=== PATIENT | male | born 1975 | race African-American/Black ===

== ENCOUNTER 2016-08-15 19:42 | Inpatient (IN) | payer OTHER ==
[2016-08-15 22:10] VITALS: BMI 25.8
--- NOTE | 2016-08-15 22:52 | HP ---
CIWA Score - CIWA Score Nausea/Vomitin-Mild Nausea/No Vomiting Muscle Tremors: 1-None Visible, but [place] Anxiety: 3 Agitation: 3 Paroxysmal Sweats: 2 Orientation: 0-Oriented Tacttile Disturbances: 0-None Auditory Disturbances: 0-None Visual Disturbances: 2-Mild Sensitivity Headache: 1-Very Mild CIWA-Ar Total Score: 13 Admission ROS BHS - HPI Chief Complaint: WITHDRAWAL SYMPTOMS Allergies/Adverse Reactions: Allergies Allergy/AdvReac Type Severity Reaction Status Date / Time house dust Allergy Verified 08/15/16 22:49 BUTTER Allergy Uncoded 08/15/16 22:49 History of Present Illness: 41 Y.O. MAN WITH AN EXTENSIVE HISTORY OF DRUG AND ALCOHOL DEPENDENCE IS SEEKING TREATMENT. HE REPORTS HE DOES NOT HAVE A SIGNIFICANT PERIOD OF SOBRIETY. HE IS CURRENTLY ENROLLED IN A MMTP. Exam Limitations: No Limitations - Ebola screening Have you traveled outside of the country in the last 21 days: No (N) Have you had contact with anyone from an Ebola affected area: No Have you been sick,other than usual withdrawal symptoms: No Do you have a fever: No - Review of Systems Constitutional: Changes in sleep, Weakness EENT: reports: No Symptoms Reported Respiratory: reports: Shortness of Breath (H/O ASTHMA) Cardiac: reports: No Symptoms Reported GI: reports: No Symptoms Reported : reports: No Symptoms Reported Musculoskeletal: reports: Back Pain Integumentary: reports: Bruising (BRUISE TO LEFT MILLER) Neuro: reports: No Symptoms reported Endocrine: reports: No Symptoms Reported Hematology: reports: No Symptoms Reported Psychiatric: reports: Orientated x3, Anxious, other (IMPULSIVE CONTROL DISORDER , PTSD) Other Systems: Reviewed and Negative Patient History - Patient Medical History Hx Anemia: No Hx Asthma: Yes Hx Cancer: No Hx Cardiac Disorders: No Hx Congestive Heart Failure: No Hx Hypertension: No Hx Hypercholesterolemia: No Hx Pacemaker: No HX Cerebrovascular Accident: No Hx Seizures: No Hx Dementia: No Hx Diabetes: No Hx Gastrointestinal Disorders: No Hx Liver Disease: No Hx Genitourinary Disorders: No Hx Sexually Transmitted Disorders: No Hx Renal Disease (ESRD): No Hx Thyroid Disease: No Hx Human Immunodeficiency Virus (HIV): No Hx Hepatitis C: No Hx Depression: Yes Hx Suicide Attempt: No Hx Bipolar Disorder: Yes Hx Schizophrenia: Yes Other Medical History: PTSD, IMPULSIVE CONTROL DISORDER - Patient Surgical History Past Surgical History: No - PPD History Previous Implant?: Yes Documented Results: Negative w/o proof PPD to be Administered?: Yes - Reproductive History Patient is a Female of Child Bearing Age (11 -55 yrs old): No - Smoking Cessation Smoking history: Current every day smoker Have you smoked in the past 12 months: Yes Aproximately how many cigarettes per day: 10 Hx Chewing Tobacco Use: No Initiated information on smoking cessation: Yes 'Breaking Loose' booklet given: 08/15/16 - Substance & Tx. History Hx Alcohol Use: Yes Hx Substance Use: Yes Substance Use Type: Alcohol, Tranquilizers Hx Substance Use Treatment: Yes (REHAB ) - Substances Abused Alcohol Route: Oral Frequency: Daily Amount used: 1 GALLON OF LIQUOR Age of first use: 10 Date of Last Use: 08/14/16 Benzodiazepine (Klonopin) Route: Oral Frequency: Daily Amount used: 50MG Age of first use: 21 Date of Last Use: 08/14/16 Cocaine Route: Inhalation Frequency: 3-6 times per week Amount used: 1/2 GRAM Age of first use: 10 Date of Last Use: 08/14/16 Family Disease History - Family Disease History Family Disease History: Heart Disease: Mother, CA: Grandparent, Respiratory: Father (HEROIN/ETOH DEPENDENCE- ), Other: Father Admission Physical Exam S - Vital Signs Vital Signs: Vital Signs - 24 hr 08/15/16 22:03 Temperature 97.2 F L Pulse Rate 66 Respiratory 18 Rate Blood Pressure 136/81 - Physical General Appearance: Yes: Disheveled, Irritable, Sweating, Anxious HEENTM: Yes: Hearing grossly Normal, Normal ENT Inspection, Normocephalic, Normal Voice Respiratory: Yes: Chest Non-Tender, Lungs Clear, Normal Breath Sounds, No Respiratory Distress, No Accessory Muscle Use Neck: Yes: Within Normal Limits Breast: Yes: Breast Exam Deferred Cardiology: Yes: Regular Rhythm, Regular Rate, S1, S2 Abdominal: Yes: Normal Bowel Sounds, Non Tender, Flat, Soft Genitourinary: Yes: Within Normal Limits Musculoskeletal: Yes: Gait Steady, Pelvis Stable, Back pain Extremities: Yes: Normal Inspection, Normal Range of Motion, Non-Tender Neurological: Yes: Fully Oriented, Normal Mood/Affect, Normal Response Integumentary: Yes: Normal Color, Dry Lymphatic: Yes: Within Normal Limits - Diagnostic (1) Alcohol dependence with uncomplicated withdrawal Current Visit: Yes Status: Chronic (2) Opioid dependence on agonist therapy Current Visit: Yes Status: Acute (3) Asthma Current Visit: Yes Status: Chronic (4) Sedative, hypnotic or anxiolytic dependence with withdrawal, uncomplicated Current Visit: Yes Status: Chronic (5) Cocaine dependence, uncomplicated Current Visit: Yes Status: Chronic Cleared for Admission [facility] - Detox or Rehab [facility] Level of Care: Medically Managed Detox Regimen/Protocol: Valium [facility] Breath Alcohol Content Breath Alcohol Content: 0 Urine Drug Screen - Results Drug Screen Negative: No Urine Drug Screen Results: THC-Marijuana, YOLIE-Cocaine, OPI-Opiates, MTD- Methadone
[2016-08-15] MEDS ORDERED: MAG HYDROX/AL HYDROX/SIMETH 30 ML UNIT-DOSE CUP PO PRN (23:05)
[2016-08-15] MEDS ORDERED: diazePAM 5 MG TABLET PO ONE (23:05)
[2016-08-15] MEDS ORDERED: NICOTINE POLACRILEX 2 MG GUM BC PRN (23:05)
[2016-08-15] MEDS ORDERED: guaiFENesin/D-METHORPHAN HB 10 ML UNIT-DOSE CUPS PO PRN (23:05)
[2016-08-15] MEDS ORDERED: diphenhydrAMINE HCL 50 MG CAPSULE PO PRN (23:05)
[2016-08-15] MEDS ORDERED: ACETAMINOPHEN 325 MG TABLET (FP) PO PRN (23:05)
[2016-08-15] MEDS ORDERED: hydrOXYzine PAMOATE 50 MG CAPSULE (FP) PO PRN (23:05)
[2016-08-15] MEDS ORDERED: P-EPHED 60MG/TRIPROLIDI 2.5MG TABLET PO PRN (23:05)
[2016-08-15] MEDS ORDERED: MAGNESIUM CITRATE 300 ML BOTTLE PO PRN (23:05)
[2016-08-15] MEDS ORDERED: diazePAM 5 MG TABLET PO PRN (23:05)
[2016-08-15] MEDS ORDERED: IBUPROFEN 400 MG TABLET (FP) PO PRN (23:05)
[2016-08-15] MEDS ORDERED: LOPERAMIDE HCL 2 MG CAPSULE PO PRN (23:05)
[2016-08-15] MEDS ORDERED: MENTHOL/PHENOL 1 EACH UD MM PRN (23:05)
[2016-08-15] MEDS ORDERED: ALBUTEROL SO4 6.7 GM HFA INHALER IH PRN (23:07)
[2016-08-16] MEDS: diazePAM 5 MG TABLET PO SCH ×4 (01:43→23:23)
--- NOTE | 2016-08-16 08:57 | PN ---
S CIWA - CIWA Score Nausea/Vomitin Muscle Tremors: 3 Anxiety: 3 Agitation: 2 Paroxysmal Sweats: 1-Minimal Palms Moist Orientation: 0-Oriented Tacttile Disturbances: 1-Very Mild Itch/Numbness Auditory Disturbances: 1-Very Mild Visual Disturbances: 1-Very Mild Sensitivity Headache: 2-Mild CIWA-Ar Total Score: 17 BHS Progress Note (SOAP) Subjective: ALERT,IRRITABLE,ANXIOUS,INTERRUPTED SLEEP,TREMOR,PAIN IN THE BODY AND BACK Objective: 08/16/16 08:56 Vital Signs Temperature 97.1 F L 08/16/16 06:19 Pulse Rate 64 08/16/16 06:19 Respiratory Rate 16 08/16/16 06:19 Blood Pressure 98/61 08/16/16 06:19 O2 Sat by Pulse Oximetry (%) EKG NSR,NORMAL ECG LABS PENDING Assessment: 08/16/16 08:56 WITHDRAWAL SYMPTOM Plan: CONTINUE DETOX
[2016-08-16] MEDS ORDERED: METHADONE HCL 10 MG TABLET PO ONE (09:33)
[2016-08-16] MEDS ORDERED: METHADONE 40 MG, METHADONE 20 MG PO ONE (10:00)
[2016-08-16] MEDS: NICOTINE 14 MG/24 HOURS TOPICAL PATCH TD SCH (10:09)
[2016-08-16] MEDS: PRENATAL VITAMINS W/ FOLIC ACID TABLET (FP) PO SCH (10:09)
[2016-08-16] MEDS ORDERED: METHADONE HCL 10 MG TABLET ONE (10:11)
[2016-08-16] MEDS ORDERED: METHADONE HCL 40 MG DISPERSABLE TABLET ONE (10:11)
[2016-08-16 11:28] LABS: MCH 28.9 pg (25.7-33.7); MCHC 32.5 g/dl (32.0-35.9); MEAN CELL VOLUME 88.9 fl (80-96); MEAN PLT VOLUME 7.6 fl (7.5-11.1); PLATELET COUNT 239 K/MM3 (134-434); RDW 15.4 % (11.9-15.9); WHITE BLOOD COUNT 7.7 K/mm3 (4.0-10.0)
[2016-08-16 11:40] LABS: ALBUMIN 3.5 g/dl (3.4-5.0); ALK PHOS 57 U/L (45-117); ANION GAP 10 (8-16); BILIRUBIN,TOTAL 0.4 mg/dL (0.2-1.0); CALCIUM 8.6 mg/dL (8.5-10.1); CO2 31 mmol/L (21-32); CREATININE 1.1 mg/dL (0.7-1.3); GLUCOSE,RANDOM 81 mg/dL (74-106); SGOT/AST 11 U/L (15-37); SGPT/ALT 15 U/L (12-78); TOT PROT 6.5 g/dl (6.4-8.2)
[2016-08-16 14:12] LABS: HIV 1 & 2 AB NEGATIVE; HIV 1 AGp24 NEGATIVE
--- NOTE | 2016-08-16 16:35 | CONSULT ---
[facility] Psychiatric Consult - Data Date of interview: 08/16/16 Admission source: [facility] Identifying data: First admission to [facility] for this 41 y/o AA male seeking detox treatment on for alcohol,cocaine and marijuana dependence.Patient is single,a father of one,domiciled,unemployed and supported on food stamps. Substance Abuse History: - Smoking Cessation. Smoking history: Current every day smoker. Have you smoked in the past 12 months: Yes. Aproximately how many cigarettes per day: 10. Hx Chewing Tobacco Use: No. Initiated information on smoking cessation: Yes. 'Breaking Loose' booklet given: 08/15/16. - Substance & Tx. History. Hx Alcohol Use: Yes. Hx Substance Use: Yes. Substance Use Type : Alcohol, Tranquilizers. Hx Substance Use Treatment: Yes (REHAB ). - Substances Abused. Alcohol. Route: Oral. Frequency: Daily. Amount used: 1 GALLON OF LIQUOR. Age of first use: 10. Date of Last Use: 08/14/16. Benzodiazepine (Klonopin). Route: Oral. Frequency: Daily. Amount used: 50MG. Age of first use: 21. Date of Last Use: 08/14/16. Cocaine. Route: Inhalation. Frequency: 3-6 times per week. Amount used: 1/2 GRAM. Age of first use: 10. Date of Last Use: 08/14/16. Confirmed by the patient in this interview. Medical History: No reported medical problems. Psychiatric History: Patient reports a history of " a few " psychiatric hospitalizations.Known to [facility].Diagnosed with PTSD.Mr Ovalle is a mildly sedated and marginally cooperative historian.He is not able to provide information to support his diagnosis.He states that he has no contact with psychiatrists or other mental healthcare providers.Medications : patient remembers only gabapentin and celexa (not doses).He denies history of suicide attempts. Physical/Sexual Abuse/Trauma History: Patient denies. Additional Comment: Urine Drug Screen Results: THC-Marijuana, YOLIE-Cocaine, OPI- Opiates, MTD-Methadone.Noted. Mental Status Exam - Mental Status Exam Alert and Oriented to: Time, Place, Person Cognitive Function: Grossly Intact Patient Appearance: Well Groomed Mood: Withdrawn Affect: Constricted Patient Behavior: Sedated (mildly), Fatigued Speech Pattern: Clear, Delayed Voice Loudness: Normal Thought Process: Goal Oriented Thought Disorder: Not Present Hallucinations: Denies Suicidal Ideation: Denies Homicidal Ideation: Denies Insight/Judgement: Poor Sleep: Fair Appetite: Good Muscle strength/Tone: Normal Gait/Station: Normal Psychiatric Findings - Problem List ([place] 1, 2,3) (1) Alcohol dependence with uncomplicated withdrawal Current Visit: Yes Status: Acute (2) Opioid dependence on agonist therapy Current Visit: Yes Status: Acute (3) Cocaine dependence, uncomplicated Current Visit: Yes Status: Acute (4) Sedative, hypnotic or anxiolytic dependence with withdrawal, uncomplicated Current Visit: Yes Status: Acute (5) Nicotine dependence Current Visit: Yes Status: Acute (6) Substance induced mood disorder Current Visit: Yes Status: Acute (7) Asthma Current Visit: Yes Status: Chronic - Initial Treatment Plan Initial Treatment Plan: Psychoeducation.Detoxification.Medications : celexa 10 mg po daily.Side effects/benefits discussed with the patient.He agrees with this careplan.Observation.
[2016-08-16] MEDS ORDERED: THIAMINE HCL 100 MG TABLET (FP) PO SCH (22:00)
[2016-08-17 00:20] LABS: URINE APPEARANCE CLEAR; URINE BILIRUBIN NEGATIVE (NEGATIVE); URINE BLOOD NEGATIVE (NEGATIVE); URINE COLOR LTYELLOW; URINE GLUCOSE (UA) NEGATIVE (NEGATIVE); URINE KETONE NEGATIVE (NEGATIVE); URINE LEUK ESTERASE NEGATIVE (NEGATIVE); URINE NITRITE NEGATIVE (NEGATIVE); URINE PROTEIN NEGATIVE (NEGATIVE); URINE UROBILINOGEN NEGATIVE E.U./dl (0.2-1.0)
[2016-08-17] MEDS ORDERED: METHADONE HCL 10 MG TABLET ONE (04:42)
[2016-08-17] MEDS ORDERED: METHADONE HCL 40 MG DISPERSABLE TABLET ONE (04:42)
[2016-08-17] MEDS ORDERED: METHADONE HCL 10 MG TABLET PO SCH (06:00)
[2016-08-17] MEDS ORDERED: METHADONE 40 MG, METHADONE 20 MG PO SCH (06:00)
[2016-08-17] MEDS ORDERED: CITALOPRAM HYDROBROMIDE 10 MG TABLET (FP) PO SCH (10:00)
[2016-08-17] MEDS ORDERED: diazePAM 5 MG TABLET PO SCH (10:00)
[2016-08-17] MEDS: PRENATAL VITAMINS W/ FOLIC ACID TABLET (FP) PO SCH (10:11)
[2016-08-17] MEDS: NICOTINE 14 MG/24 HOURS TOPICAL PATCH TD SCH (10:11)
--- NOTE | 2016-08-17 11:19 | PN ---
S CIWA - CIWA Score Nausea/Vomitin Muscle Tremors: 3 Anxiety: 2 Agitation: 2 Paroxysmal Sweats: 1-Minimal Palms Moist Orientation: 0-Oriented Tacttile Disturbances: 1-Very Mild Itch/Numbness Auditory Disturbances: 1-Very Mild Visual Disturbances: 1-Very Mild Sensitivity Headache: 2-Mild CIWA-Ar Total Score: 16 BHS Progress Note (SOAP) Subjective: ALERT,IRRITABLE,ANXIOUS,INTERRUPTED SLEEP,TREMOR Objective: 08/17/16 11:18 Vital Signs Temperature 98.1 F 08/17/16 09:48 Pulse Rate 72 08/17/16 09:48 Respiratory Rate 18 08/17/16 09:48 Blood Pressure 113/83 08/17/16 09:48 O2 Sat by Pulse Oximetry (%) Laboratory Last Values WBC 7.7 K/mm3 (4.0-10.0) 08/16/16 08:00 RBC 4.89 M/mm3 (4.00-5.60) 08/16/16 08:00 Hgb 14.2 GM/dL (11.7-16.9) 08/16/16 08:00 Hct 43.5 % (35.4-49) 08/16/16 08:00 MCV 88.9 fl (80-96) 08/16/16 08:00 MCHC 32.5 g/dl (32.0-35.9) 08/16/16 08:00 RDW 15.4 % (11.9-15.9) 08/16/16 08:00 Plt Count 239 K/MM3 (134-434) 08/16/16 08:00 MPV 7.6 fl (7.5-11.1) 08/16/16 08:00 Sodium 141 mmol/L (136-145) 08/16/16 08:00 Potassium 4.2 mmol/L (3.5-5.1) 08/16/16 08:00 Chloride 100 mmol/L (98-107) 08/16/16 08:00 Carbon Dioxide 31 mmol/L (21-32) 08/16/16 08:00 Anion Gap 10 (8-16) 08/16/16 08:00 BUN 15 mg/dL (7-18) 08/16/16 08:00 Creatinine 1.1 mg/dL (0.7-1.3) 08/16/16 08:00 Creat Clearance w eGFR > 60 (>60) 08/16/16 08:00 Random Glucose 81 mg/dL (74-106) 08/16/16 08:00 Calcium 8.6 mg/dL (8.5-10.1) 08/16/16 08:00 Total Bilirubin 0.4 mg/dL (0.2-1.0) 08/16/16 08:00 AST 11 U/L (15-37) L 08/16/16 08:00 ALT 15 U/L (12-78) 08/16/16 08:00 Alkaline Phosphatase 57 U/L (45-117) 08/16/16 08:00 Total Protein 6.5 g/dl (6.4-8.2) 08/16/16 08:00 Albumin 3.5 g/dl (3.4-5.0) 08/16/16 08:00 Urine Color Ltyellow 08/16/16 23:58 Urine Appearance Clear 08/16/16 23:58 Urine pH 6.0 (5.0-8.0) 08/16/16 23:58 Ur Specific [place] 1.016 (1.001-1.035) 08/16/16 23:58 Urine Protein Negative (NEGATIVE) 08/16/16 23:58 Urine Glucose (UA) Negative (NEGATIVE) 08/16/16 23:58 Urine Ketones Negative (NEGATIVE) 08/16/16 23:58 Urine Blood Negative (NEGATIVE) 08/16/16 23:58 Urine Nitrite Negative (NEGATIVE) 08/16/16 23:58 Urine Bilirubin Negative (NEGATIVE) 08/16/16 23:58 Urine Urobilinogen Negative E.U./dl (0.2-1.0) 08/16/16 23:58 Ur Leukocyte Esterase Negative (NEGATIVE) 08/16/16 23:58 RPR Titer Nonreactive (NONREACTIVE) 08/16/16 08:00 HIV 1&2 Antibody Screen Negative 08/16/16 08:00 HIV P24 Antigen Negative 08/16/16 08:00 Assessment: 08/17/16 11:18 WITHDRAWAL SYMPTOM Plan: CONTINUE DETOX
--- NOTE | 2016-08-17 13:01 | PN ---
S Progress Note Note: PATIENT DID NOT WANT TO COMPLETE TREATMENT,SEEN BY COUNSELOR,SIGNED RELEASE AMA
--- NOTE | 2016-08-17 13:03 | DS ---
[facility] Detox Discharge Summary Admission Date: 08/15/16 - History Present History: Alcohol Dependence, Cocaine Dependence, MMTP Additional Comments: PATIENT DID NOT WANT TO COMPLETE TREATMENT,SIGNED RELEASE AMA,SEEN BY COUNSELOR Pertinent Past History: ASTHMA - Physical Exam Results Vital Signs: Vital Signs Temperature 98.1 F 08/17/16 09:48 Pulse Rate 72 08/17/16 09:48 Respiratory Rate 18 08/17/16 09:48 Blood Pressure 113/83 08/17/16 09:48 O2 Sat by Pulse Oximetry (%) Pertinent Admission Physical Exam Findings: WITHDRAWAL SYMPTOM - Treatment Patient has Accepted a Rehab Referral to: DECLINED - Medication Discharge Medications: Ambulatory Orders Citalopram Hydrobromide [Celexa -] 10 mg PO DAILY 08/15/16 Clonidine HCl 0.1 mg PO DAILY 08/15/16 Gabapentin [Neurontin -] 300 mg PO Q8H 08/15/16 Citalopram Hydrobromide [Celexa -] 10 mg PO DAILY #30 tablet 08/16/16 - AMA Did Patient Leave Against Medical Advice: Yes
[2016-08-17 14:14] VITALS: BP 114/71; PULSE 66; TEMP 98.2
--- NOTE | 2016-08-17 22:39 | EKG ---
Test Reason : Blood Pressure : / mmHG Vent. Rate : 066 BPM Atrial Rate : 066 BPM P-R Int : 168 ms QRS Dur : 086 ms QT Int : 428 ms P-R-T Axes : 063 063 045 degrees QTc Int : 448 ms NORMAL SINUS RHYTHM NORMAL ECG NO PREVIOUS ECGS AVAILABLE Confirmed by JEN RAMOS MD ([id number]) on 08/17/2016 10:39:07 PM Referred By: Confirmed By:JEN RAMOS MD
[2016-08-19] MEDS ORDERED: diazePAM 5 MG TABLET PO SCH (10:00)
== END 2016-08-17 13:31 | disposition left against medical advice (07) | DRG 770 ==
LOC: YASAS 19:42 → Y6N 23:02
PROVIDERS: ADMIT Internal Medicine; ATTEND Internal Medicine
PROC: HZ2ZZZZ Detoxification Services for Substance Abuse Treatment (ICD-10-PCS; principal; 2016-08-17)
DX: F11.20 Opioid dependence, uncomplicated (principal); F13.220 Sedative, hypnotic or anxiolytic dependence with intoxication, uncomplicated; F10.230 Alcohol dependence with withdrawal, uncomplicated; F14.20 Cocaine dependence, uncomplicated; F17.210 Nicotine dependence, cigarettes, uncomplicated; F19.24 Other psychoactive substance dependence with psychoactive substance-induced mood disorder; J45.909 Unspecified asthma, uncomplicated
CPT/HCPCS: 36415; 80053; 81003; 85027; 86593; 87389; 93005; 93010

== ENCOUNTER 2020-01-24 10:09 | Inpatient (IN) | payer OTHER ==
--- NOTE | 2020-01-24 10:21 | BHS.RME ---
Substance Use & Tx History - Substance Use History Heroin Substance amount: 2-3 bags Frequency of use: Daily Substance route: Inhalation (ex: sniffing or snorting) Date of Last Use: 01/23/20 (First use age 39) Synthetic Cannabinoid Substance amount: 3 blunts Frequency of use: Daily Substance route: Smoking Date of Last Use: 01/24/20 (First use age 43 y) - Last Treatment Date of last treatment: [facility] 05/11/19 Physical/Psych/Mental Status - Behavior General Behavior: Increased activity (restlessness, agitation) Eye Contact: Normal - Cooperativeness Cooperativeness: Cooperative - Thinking Thought Processes: Tight Thought content: Future oriented - Physical Health Problems Is patient presently having any pain?: Yes (GI upset all day) Does patient presently have any injuries (include location): No Does patient currently have a fever: No COWS - Scale Resting Pulse: 0= [place] 80 or Below Sweatin= Chills/Flushing Restless Observation: 1= Difficult to Sit Still Pupil Size: 0= Normal to Room Light Bone or Joint Aches: 0= None Runny Nose/ Eye Tearin= Nasal Congestion GI Upset > 30mins: 3= Vomiting/Diarrhea Tremor Observation: 0= None Yawning Observation: 0= None Anxiety or Irritability: 1=Feels Anxious/Irritable Goose Flesh Skin: 0=Smooth Skin COWS Score: 7
[2020-01-24 11:35] VITALS: BMI 21.6
[2020-01-24] MEDS ORDERED: ONDANSETRON *ODT* 4 MG TABLET ONE (12:01)
--- NOTE | 2020-01-24 12:02 | HP ---
COWS - Scale Resting Pulse: 0= [place] 80 or Below Sweatin= Chills/Flushing Restless Observation: 1= Difficult to Sit Still Pupil Size: 0= Normal to Room Light Bone or Joint Aches: 0= None Runny Nose/ Eye Tearin= Nasal Congestion GI Upset > 30mins: 3= Vomiting/Diarrhea Tremor Observation: 0= None Yawning Observation: 0= None Anxiety or Irritability: 1=Feels Anxious/Irritable Goose Flesh Skin: 0=Smooth Skin COWS Score: 7 CIWA Score - Admission Criteria [facility] Guidelines: Admission for Medically Managed Detox: Requires at least one of the followin. CIWA greater than 12 2. Seizures within the past 24 hours 3. Delirium tremens within the past 24 hours 4. Hallucinations within the past 24 hours 5. Acute intervention needed for co occurring medical disorder 6. Acute intervention needed for co occurring psychiatric disorder 7. Severe withdrawal that cannot be handled at a lower level of care (continued vomiting, continued diarrhea, abnormal vital signs) requiring intravenous medication and/or fluids 8. Admitting History and Physical - Admission Chief Complaint: Mr. Ovalle is a 44 yo gentleman who presents to [facility] stating "I want to stop getting high". History of Present Illness: Mr. Ovalle is a 44 yo gentleman who presents to [facility] stating "I want to stop getting high". She was screened but not admitted on May 11, 2019: foul language, refused to be examined by a female. He no longer wants to be on Suboxone "I want to be off period". He states that he "misplaced" his Suboxone 3 days ago and can not refill. PMH: Asthma, herniated disc cervical PSH: none Psych: anxiety/depression SOC: Longterm Legal: on probation Substance Use History Heroin Substance amount: 2-3 bags Frequency of use: Daily Substance route: Inhalation (ex: sniffing or snorting) Date of Last Use: 01/23/20 (First use age 39) Synthetic Cannabinoid Substance amount: 3 blunts Frequency of use: Daily Substance route: Smoking Date of Last Use: 01/24/20 (First use age 43 y) Crack yesterday or day before 3 vials First use: yesterday - Last Treatment Date of last treatment: [facility] 05/11/19 Pt meets admission criteria, develped worsening withdrawl symptoms while waiting, vomitting, COWS now 12 Patient Name: Dipak Ovalle Date: 1975 Address: [address] [address] Sex: Male Rx Written Rx Dispensed Drug Quantity Days Supply Prescriber Name 03/04/2019 03/08/2019 buprenorphine-naloxone 8-2 mg sl film 14 14 Brice Sinha) Date: 1975 Address: [address] [place] [id number] Sex: Male Rx Written Rx Dispensed Drug Quantity Days Supply Prescriber Name 01/18/2020 01/19/2020 buprenorphine-naloxone 8-2 mg sl film 24 8 Soheila Barrios MD 01/06/2020 01/06/2020 buprenorphine-naloxone 12-3 mg sl film 30 15 Meggan Priest Mireya 12/19/2019 12/19/2019 buprenorphine-naloxone 12-3 mg sl film 30 15 Soheila Barrios MD 11/22/2019 11/22/2019 buprenorphine-naloxone 12-3 mg sl film 30 15 Soheila Barrios MD 11/08/2019 11/08/2019 buprenorphine-naloxone 12-3 mg sl film 30 15 Soheila Barrios MD 10/17/2019 10/17/2019 buprenorphine-naloxone 12-3 mg sl film 28 14 Ziemba Cem, Mireya 09/15/2019 09/17/2019 buprenorphine-naloxone 12-3 mg sl film 56 28 Ziemba Cem, Mireya 09/01/2019 09/01/2019 buprenorphine-naloxone 12-3 mg sl film 42 21 Ziemba Cem, Mireya 08/18/2019 08/18/2019 buprenorphine-naloxone 12-3 mg sl film 28 14 Ziemba Cem, Mireya 07/27/2019 07/27/2019 buprenorphine-naloxone 12-3 mg sl film 32 16 Ziemba Cem, Mireya 07/15/2019 07/15/2019 buprenorphine-naloxone 12-3 mg sl film 30 15 Ziemba Cem, Mireya 06/30/2019 06/30/2019 buprenorphine-naloxone 12-3 mg sl film 30 15 Ziemba Cem, Mireya 06/16/2019 06/17/2019 buprenorphine-naloxone 12-3 mg sl film 30 15 Soheila Barrios MD History Source: Patient Limitations to Obtaining History: No Limitations - Smoking History Smoking history: Current every day smoker Have you smoked in the past 12 months: Yes Aproximately how many cigarettes per day: 10 - Alcohol/Substance Use Hx Alcohol Use: Yes Admission ROS S - HPI Allergies/Adverse Reactions: Allergies Allergy/AdvReac Type Severity Reaction Status Date / Time house dust Allergy Verified 01/24/20 11:28 BUTTER Allergy Uncoded 01/24/20 11:28 Exam Limitations: No Limitations - Ebola screening Have you traveled outside of the country in the last 21 days: No Have you been sick,other than usual withdrawal symptoms: No Do you have a fever: No - Review of Systems Constitutional: Unintentional Wgt. Loss (30 lbs lost in one year) EENT: reports: No Symptoms Reported Respiratory: reports: No Symptoms reported Cardiac: reports: No Symptoms Reported GI: reports: Nausea, Vomiting : reports: No Symptoms Reported Musculoskeletal: reports: No Symptoms Reported Integumentary: reports: No Symptoms Reported, Other (sutures in chin x 10 days, hit his head, tx [facility]) Neuro: denies: Headache Hematology: denies: Blood Clots, Easy Bleeding Psychiatric: reports: Anxious Patient History - Patient Medical History Hx Anemia: No Hx Asthma: Yes (PUMPS) Hx Chronic Obstructive Pulmonary Disease (COPD): No Hx Cancer: No Hx Cardiac Disorders: No Hx Congestive Heart Failure: No Hx Hypertension: No Hx Hypercholesterolemia: No Hx Pacemaker: No HX Cerebrovascular Accident: No Hx Seizures: No Hx Dementia: No Hx Diabetes: No Hx Gastrointestinal Disorders: No Hx Liver Disease: No Hx Genitourinary Disorders: No Hx Sexually Transmitted Disorders: No Hx Renal Disease (ESRD): No Hx Thyroid Disease: No Hx Human Immunodeficiency Virus (HIV): No Hx Hepatitis C: No Hx Depression: Yes Hx Suicide Attempt: No Hx Bipolar Disorder: Yes Hx Schizophrenia: Yes - Patient Surgical History Past Surgical History: No Hx Neurologic Surgery: No Hx Cataract Extraction: No Hx Cardiac Surgery: No Hx Lung Surgery: No Hx Breast Surgery: No Hx Breast Biopsy: No Hx Abdominal Surgery: No Hx Appendectomy: No Hx Cholecystectomy: No Hx Genitourinary Surgery: No Hx Section: No Hx Orthopedic Surgery: No Anesthesia Reaction: No - PPD History Previous Implant?: Yes Documented Results: Negative w/proof Implanted On Prior R Admission?: Yes Date: 08/18/16 - Smoking Cessation Smoking history: Current every day smoker Have you smoked in the past 12 months: Yes Aproximately how many cigarettes per day: 1 Hx Chewing Tobacco Use: No Initiated information on smoking cessation: No - Substances abused Heroin Substance route: Inhalation Frequency: Daily Amount used: 2-3 BAGS Age of first use: 39 Date of last use: 01/23/20 K2/Spice Substance route: Smoking Frequency: Daily Amount used: $100 Age of first use: 41 Date of last use: 01/24/20 Admission Physical Exam BHS - Vital Signs Vital Signs: Vital Signs - 24 hr 01/24/20 11:32 Temperature 97.3 F L Pulse Rate 67 Respiratory 18 Rate Blood Pressure 152/88 - Physical General Appearance: Yes: Severe Distress, Thin HEENTM: Yes: EOMI, Hearing grossly Normal, Normocephalic, Other (pt states sutures in chin, I can not see, as his robledo is dark and sutures not visible) Respiratory: Yes: Lungs Clear, No Respiratory Distress, No Accessory Muscle Use Neck: Yes: Within Normal Limits, Supple Breast: Yes: Breast Exam Deferred Cardiology: Yes: Regular Rhythm, Regular Rate, S1, S2 Abdominal: Yes: Non Tender, Flat, Soft, Increased Bowel Sounds Genitourinary: Yes: Other (deferred) Musculoskeletal: Yes: Gait Steady Extremities: Yes: Normal Inspection, Non-Tender Integumentary: Yes: Normal Color, Dry, Warm Breathalyzer - Breathalyzer Breathalyzer: 0 Urine Drug Screen - Test Device Lot number: [id number] Expiration date: 01/16/22 - Control Is test valid?: Yes - Results Drug screen NEGATIVE: No Urine drug screen results: YOLIE-Cocaine, MOP-Opiates, BUP-Suboxone Inpatient Rehab Admission - Rehab Decision to Admit Inpatient rehab admission?: No
[2020-01-24] MEDS ORDERED: METHADONE HCL 10 MG TABLET (FOR DETOX USE ONLY) ONE (12:11)
[2020-01-24] MEDS ORDERED: IBUPROFEN 400 MG TABLET (FP) PO PRN (12:12)
[2020-01-24] MEDS ORDERED: cloNIDine HCL 0.1 MG TABLET PO PRN (12:12)
[2020-01-24] MEDS ORDERED: MAGNESIUM CITRATE 300 ML BOTTLE PO PRN (12:12)
[2020-01-24] MEDS ORDERED: ACETAMINOPHEN 325 MG TABLET (FP) PO PRN ×2 (12:12)
[2020-01-24] MEDS ORDERED: NICOTINE POLACRILEX 2 MG GUM BUC PRN (12:12)
[2020-01-24] MEDS ORDERED: MAGNESIUM HYDROX 2400MG/30ML ORAL SUSPENSION 30 ML CUP PO PRN (12:12)
[2020-01-24] MEDS ORDERED: METHADONE HCL 10 MG TABLET (FOR DETOX USE ONLY) PO ONE (12:12)
[2020-01-24] MEDS ORDERED: MENTHOL/PHENOL 1 EACH UD MM PRN (12:12)
[2020-01-24] MEDS ORDERED: BISMUTH SUBSALICYLATE 262 MG/15 ML BTL PO PRN (12:12)
[2020-01-24] MEDS ORDERED: METHOCARBAMOL 500 MG TABLET PO PRN (12:12)
[2020-01-24] MEDS ORDERED: GABAPENTIN 300 MG CAPSULE PO SCH (12:15)
[2020-01-24] MEDS ORDERED: METHADONE HCL 10 MG TABLET PO ONE ×2 (12:19→19:57)
[2020-01-24] MEDS: ONDANSETRON *ODT* 4 MG TABLET SL PRN ×2 (12:44→15:20)
[2020-01-24] MEDS: MAG HYDROX/AL HYDROX/SIMETH 30 ML UNIT-DOSE CUP PO PRN (12:49)
[2020-01-24] MEDS: hydrOXYzine PAMOATE 25 MG CAPSULE (FP) PO SCH ×3 (13:13→23:15)
--- NOTE | 2020-01-24 13:37 | EKG ---
Test Reason : Blood Pressure : / mmHG Vent. Rate : 062 BPM Atrial Rate : 062 BPM P-R Int : 168 ms QRS Dur : 086 ms QT Int : 426 ms P-R-T Axes : 077 082 071 degrees QTc Int : 432 ms NORMAL SINUS RHYTHM NORMAL ECG WHEN COMPARED WITH ECG OF 16-AUG-2016 01:25, NONSPECIFIC T WAVE ABNORMALITY NO LONGER EVIDENT IN INFERIOR LEADS Confirmed by MD Lizbeth, Morgan ([id number]) on 01/24/2020 1:37:26 PM Referred By: Confirmed By:Morgan Nieves MD
[2020-01-24 17:22] LABS: HEMATOCRIT 42.5 % (35.4-49); HEMOGLOBIN 13.7 GM/dL (11.7-16.9); MCHC 32.3 g/dl (32.0-35.9); MEAN CELL VOLUME 89.8 fl (80-96); PLATELET COUNT 285 K/MM3 (134-434); RBC 4.73 M/mm3 (4.00-5.60); RDW 14.7 % (11.9-15.9); WHITE BLOOD COUNT 11.4 K/mm3 (4.0-10.0)
[2020-01-24 17:34] LABS: ALBUMIN 4.1 g/dl (3.4-5.0); BILIRUBIN,TOTAL 0.9 mg/dL (0.2-1); CALCIUM 9.4 mg/dL (8.5-10.1); CREATININE 0.9 mg/dL (0.55-1.3); POTASSIUM 3.2 mmol/L (3.5-5.1); TOT PROT 7.3 g/dl (6.4-8.2)
[2020-01-24] MEDS ORDERED: TRIMETHOBENZAMIDE HCL 200MG/2ML INJ IM ONE (17:48)
--- NOTE | 2020-01-24 17:50 | PN ---
S Progress Note Note: per nursing pt c/o nausea , no relief w/ Zofran Vital Signs - 24 hr 01/24/20 01/24/20 11:32 17:10 Temperature 97.3 F L 97.3 F L Pulse Rate 67 60 Respiratory 18 18 Rate Blood Pressure 152/88 143/91 P Tigan i.m, ordered
[2020-01-24] MEDS ORDERED: MELATONIN 5 MG TABLETS PO SCH (22:00)
[2020-01-24] MEDS ORDERED: THIAMINE HCL 100 MG TABLET (FP) PO SCH (22:00)
[2020-01-24] MEDS: GABAPENTIN 300 MG CAPSULE PO SCH (23:15)
[2020-01-25] MEDS: GABAPENTIN 300 MG CAPSULE PO SCH ×2 (05:40→13:24)
[2020-01-25] MEDS: hydrOXYzine PAMOATE 25 MG CAPSULE (FP) PO SCH ×3 (05:40→13:24)
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
[2020-01-25] MEDS ORDERED: TRIMETHOBENZAMIDE HCL 200MG/2ML INJ IM PRN (09:21)
[2020-01-25] MEDS ORDERED: METHADONE HCL 5 MG TABLET (FOR DETOX USE ONLY) ONE (09:27)
[2020-01-25] MEDS ORDERED: METHADONE HCL 10 MG TABLET (FOR DETOX USE ONLY) ONE (09:27)
[2020-01-25] MEDS ORDERED: POTASSIUM CHLORIDE TABS 20 MEQ TABLET.ER (FP) PO SCH (10:00)
[2020-01-25] MEDS ORDERED: METHADONE (DETOX) 20 MG, METHADONE (DETOX) 5 MG PO ONE (10:00)
[2020-01-25] MEDS ORDERED: PRENATAL VITAMINS W/ FOLIC ACID TABLET (FP) PO SCH (10:00)
[2020-01-25] MEDS: MAG HYDROX/AL HYDROX/SIMETH 30 ML UNIT-DOSE CUP PO PRN (11:12)
[2020-01-25] MEDS: ONDANSETRON *ODT* 4 MG TABLET SL PRN (11:12)
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
[2020-01-25 13:51] VITALS: BP 125/80; PULSE 63; TEMP 98.4
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
[2020-01-25] MEDS ORDERED: NALOXONE (NARCAN) HCL 4 MG/0.1 ML SPRAY NS ONE (15:15)
[2020-01-25] MEDS ORDERED: ALBUTEROL SO4 HFA INHALER IH PRN (15:22)
[2020-01-25] MEDS ORDERED: CLOPIDOGREL BISULFATE 75 MG TABLET (FP) PO SCH (15:30)
[2020-01-25] MEDS ORDERED: ASPIRIN 325 MG ENTERIC COATED TABLET (FP) PO SCH (15:30)
[2020-01-26] MEDS ORDERED: METHADONE HCL 10 MG TABLET (FOR DETOX USE ONLY) PO ONE (10:00)
[2020-01-27] MEDS ORDERED: METHADONE (DETOX) 10 MG, METHADONE (DETOX) 5 MG PO ONE (10:00)
[2020-01-28] MEDS ORDERED: METHADONE HCL 10 MG TABLET (FOR DETOX USE ONLY) PO ONE (10:00)
[2020-01-29] MEDS ORDERED: METHADONE HCL 5 MG TABLET (FOR DETOX USE ONLY) PO ONE (06:00)
== END 2020-01-25 14:53 | disposition left against medical advice (07) | DRG 770 ==
LOC: YASAS 10:09 → Y6N 12:09
PROVIDERS: ADMIT Allergy & Immunology; ATTEND Allergy & Immunology
PROC: HZ2ZZZZ Detoxification Services for Substance Abuse Treatment (ICD-10-PCS; principal; 2020-01-24)
DX: F11.23 Opioid dependence with withdrawal (principal); F14.20 Cocaine dependence, uncomplicated; F12.20 Cannabis dependence, uncomplicated; F17.210 Nicotine dependence, cigarettes, uncomplicated; F41.9 Anxiety disorder, unspecified; F32.9 Major depressive disorder, single episode, unspecified; J45.909 Unspecified asthma, uncomplicated; Y04.0XXA Assault by unarmed brawl or fight, initial encounter; Y93.89 Activity, other specified; Y92.238 Other place in hospital as the place of occurrence of the external cause
CPT/HCPCS: 36415; 80053; 85027; 86780; 93005; 93010; J0735; Q0162; U0003

== ENCOUNTER 2023-07-06 13:14 | Inpatient (IN) | payer OTHER ==
[2023-07-06 14:50] VITALS: BMI 20.9
[2023-07-06] MEDS ORDERED: MAG HYDROX/AL HYDROX/SIMETH 30 ML UNIT-DOSE CUP PO PRN (18:39)
[2023-07-06] MEDS ORDERED: POLYETHYLENE GLYCOL (HEALTHYLAX) 3350 17 GM PACKET PO PRN (18:39)
[2023-07-06] MEDS ORDERED: ONDANSETRON *ODT* 4 MG TABLET SL PRN (18:39)
[2023-07-06] MEDS ORDERED: NALOXONE HCL (KLOXXADO) 8 MG SPRAY NS PRN (18:39)
[2023-07-06] MEDS ORDERED: BENZOCAINE/MENTHOL (CHLORASEPTIC ) LOZENGE MM PRN (18:39)
[2023-07-06] MEDS ORDERED: guaiFENesin 600 MG TABLET.ER (FP) PO PRN (18:39)
[2023-07-06] MEDS ORDERED: DICYCLOMINE HCL 10 MG CAPSULE PO PRN (18:39)
[2023-07-06] MEDS ORDERED: IBUPROFEN 600 MG TABLET (FP) PO PRN (18:39)
[2023-07-06] MEDS ORDERED: BISMUTH SUBSALICYLATE 524 MG/30 ML PO PRN (18:39)
[2023-07-06] MEDS ORDERED: BENZONATATE 200 MG CAPSULE PO PRN (18:39)
[2023-07-06] MEDS ORDERED: ACETAMINOPHEN 325 MG TABLET (FP) PO PRN (18:39)
[2023-07-06] MEDS ORDERED: MAGNESIUM HYDROX 2400MG/30ML ORAL SUSPENSION 30 ML CUP PO PRN (18:39)
[2023-07-06] MEDS ORDERED: hydrOXYzine PAMOATE 25 MG CAPSULE (FP) PO PRN (18:39)
[2023-07-06] MEDS ORDERED: NALOXONE HCL 0.4 MG/ML VIAL IM PRN (18:39)
[2023-07-06] MEDS ORDERED: LOPERAMIDE HCL 2 MG CAPSULE PO PRN (18:39)
[2023-07-06] MEDS ORDERED: NICOTINE POLACRILEX 2 MG LOZENGE BC PRN (18:39)
[2023-07-06] MEDS ORDERED: IBUPROFEN 400 MG TABLET (FP) PO PRN (18:39)
[2023-07-06] MEDS ORDERED: P-EPHED 60MG/TRIPROLIDI 2.5MG TABLET PO PRN (18:39)
[2023-07-06] MEDS ORDERED: cloNIDine HCL 0.1 MG TABLET PO PRN (18:41)
[2023-07-06] MEDS: MELATONIN 5 MG TABLETS PO SCH (21:58)
[2023-07-06] MEDS: THIAMINE HCL 100 MG TABLET (FP) PO SCH (21:59)
[2023-07-07] MEDS: METHOCARBAMOL 500 MG TABLET PO PRN ×2 (09:46→22:42)
[2023-07-07] MEDS ORDERED: PRENATAL VITAMINS W/ FOLIC ACID TABLET (FP) PO SCH (10:00)
[2023-07-07] MEDS ORDERED: diazePAM 5 MG TABLET PO PRN (10:34)
[2023-07-07] MEDS ORDERED: BUPRENORPHINE HCL 150 MCG, BUPRENORPHINE HCL 75 MCG BC PRN (10:34)
[2023-07-07] MEDS ORDERED: BUPRENORPHINE HCL 150 MCG, BUPRENORPHINE HCL 75 MCG BC ONE (10:34)
[2023-07-07 11:45] LABS: HEMATOCRIT 36.1 % (35.4-49); HEMOGLOBIN 11.7 GM/dL (11.7-16.9); MCH 27.5 pg (25.7-33.7); MCHC 32.5 g/dl (32.0-35.9); MEAN CELL VOLUME 84.9 fl (80-96); MEAN PLT VOLUME 6.7 fl (7.5-11.1); PLATELET COUNT 578 10^3/uL (134-434); RBC 4.26 M/mm3 (4.00-5.60); RDW 15.9 % (11.9-15.9); WHITE BLOOD COUNT 9.9 K/mm3 (4.0-10.0)
[2023-07-07 11:50] LABS: POTASSIUM 4.3 mmol/L (3.5-5.1)
[2023-07-07 11:54] LABS: CALCIUM 8.4 mg/dL (8.5-10.1)
[2023-07-07 11:55] LABS: ALBUMIN 2.5 g/dl (3.4-5.0); BLOOD UREA NITROGEN 9.3 mg/dL (7-18)
[2023-07-07 11:58] LABS: CREATININE 0.8 mg/dL (0.55-1.3)
[2023-07-07 12:00] LABS: BILIRUBIN,TOTAL 0.1 mg/dL (0.2-1); TOT PROT 7.4 g/dl (6.4-8.2)
[2023-07-07] MEDS ORDERED: ARIPiprazole 5 MG TABLET PO SCH (14:30)
[2023-07-07 21:16] VITALS: PULSE 81
[2023-07-07] MEDS: MELATONIN 5 MG TABLETS PO SCH (22:42)
[2023-07-07] MEDS: THIAMINE HCL 100 MG TABLET (FP) PO SCH (22:42)
[2023-07-08] MEDS ORDERED: BUPRENORPHINE HCL 150 MCG, BUPRENORPHINE HCL 75 MCG BC PRN
[2023-07-08] MEDS ORDERED: BUPRENORPHINE HCL 150 MCG, BUPRENORPHINE HCL 75 MCG BC SCH (06:00)
[2023-07-08 09:10] VITALS: BP 117/64; RESP 16; TEMP 98.6
[2023-07-09] MEDS ORDERED: BUPRENORPHINE HCL 450 MCG FILM BC PRN
[2023-07-09] MEDS ORDERED: BUPRENORPHINE HCL 450 MCG FILM BC SCH (06:00)
[2023-07-10] MEDS ORDERED: BUPRENORPHINE/NALOXONE 4 MG/1 MG FILM PACKET SL SCH (06:00)
[2023-07-11] MEDS ORDERED: BUPRENORPHINE/NALOXONE 8 MG/2 MG FILM PACKET SL ONE (06:00)
== END 2023-07-08 09:08 | disposition left against medical advice (07) | DRG 770 ==
LOC: YASAS 13:14 → Y6N 20:20 → Y3N 07-07 18:44
PROVIDERS: ADMIT Allergy & Immunology; ATTEND Surgery
PROC: HZ2ZZZZ Detoxification Services for Substance Abuse Treatment (ICD-10-PCS; principal; 2023-07-06)
DX: F11.23 Opioid dependence with withdrawal (principal); F14.20 Cocaine dependence, uncomplicated; F12.20 Cannabis dependence, uncomplicated; F17.210 Nicotine dependence, cigarettes, uncomplicated; F19.282 Other psychoactive substance dependence with psychoactive substance-induced sleep disorder; F31.9 Bipolar disorder, unspecified; F43.10 Post-traumatic stress disorder, unspecified; Z20.822 Contact with and (suspected) exposure to COVID-19
CPT/HCPCS: 36415; 80053; 85027; 86780; 87811; 93005; 93010

== ENCOUNTER 2023-12-11 08:40 | Inpatient (IN) | payer OTHER ==
[2023-12-11 09:20] VITALS: BMI 19.8
[2023-12-11] MEDS ORDERED: POLYETHYLENE GLYCOL (HEALTHYLAX) 3350 17 GM PACKET PO PRN (10:04)
[2023-12-11] MEDS ORDERED: NICOTINE POLACRILEX 2 MG LOZENGE BC PRN (10:04)
[2023-12-11] MEDS ORDERED: guaiFENesin 600 MG TABLET.ER (FP) PO PRN (10:04)
[2023-12-11] MEDS ORDERED: ACETAMINOPHEN 325 MG TABLET (FP) PO PRN (10:04)
[2023-12-11] MEDS ORDERED: BENZONATATE 200 MG CAPSULE PO PRN (10:04)
[2023-12-11] MEDS ORDERED: BENZOCAINE/MENTHOL (CHLORASEPTIC ) LOZENGE MM PRN (10:04)
[2023-12-11] MEDS ORDERED: DICYCLOMINE HCL 10 MG CAPSULE PO PRN (10:04)
[2023-12-11] MEDS ORDERED: BISMUTH SUBSALICYLATE 262 MG/15 ML BTL PO PRN (10:04)
[2023-12-11] MEDS ORDERED: ONDANSETRON *ODT* 4 MG TABLET SL PRN (10:04)
[2023-12-11] MEDS ORDERED: NALOXONE HCL 0.4 MG/ML VIAL IM PRN (10:04)
[2023-12-11] MEDS ORDERED: NALOXONE (NARCAN) HCL 4 MG/0.1 ML SPRAY NS PRN (10:04)
[2023-12-11] MEDS ORDERED: MAGNESIUM HYDROX 2400MG/30ML ORAL SUSPENSION 30 ML CUP PO PRN (10:04)
[2023-12-11] MEDS ORDERED: LOPERAMIDE HCL 2 MG CAPSULE PO PRN (10:04)
[2023-12-11] MEDS ORDERED: IBUPROFEN 400 MG TABLET (FP) PO PRN (10:04)
[2023-12-11] MEDS: THIAMINE 100 MG TABLET PO SCH (23:46)
[2023-12-11] MEDS: MELATONIN 5 MG TABLETS PO SCH (23:46)
[2023-12-12] MEDS: hydrOXYzine PAMOATE 25 MG CAPSULE (FP) PO PRN (10:10)
[2023-12-12] MEDS: ARIPiprazole 5 MG TABLET PO SCH (10:10)
[2023-12-12] MEDS: BENZTROPINE MESYLATE 1 MG TABLET PO SCH (10:10)
[2023-12-12] MEDS: PRENATAL VITAMINS W/ FOLIC ACID TABLET (FP) PO SCH (10:10)
[2023-12-12] MEDS: SERTRALINE HCL 50 MG TABLET (FP) PO SCH (10:10)
[2023-12-12 11:12] LABS: HEMATOCRIT 41.9 % (35.4-49); HEMOGLOBIN 13.8 GM/dL (11.7-16.9); MCH 28.7 pg (25.7-33.7); MCHC 32.9 g/dl (32.0-35.9); MEAN CELL VOLUME 87.1 fl (80-96); MEAN PLT VOLUME 7.7 fl (7.5-11.1); PLATELET COUNT 252 10^3/uL (134-434); RBC 4.81 M/mm3 (4.00-5.60); RDW 15.8 % (11.9-15.9); WHITE BLOOD COUNT 5.9 K/mm3 (4.0-10.0)
[2023-12-12] MEDS: OXcarbazepine 150 MG TABLET (UD) PO SCH (11:47)
[2023-12-12 12:00] LABS: CALCIUM 8.7 mg/dL (8.5-10.1)
[2023-12-12 12:01] LABS: ALBUMIN 3.1 g/dl (3.4-5.0); BLOOD UREA NITROGEN 5.3 mg/dL (7-18)
[2023-12-12 12:04] LABS: CREATININE 0.9 mg/dL (0.55-1.3)
[2023-12-12 12:05] LABS: TOT PROT 6.8 g/dl (6.4-8.2)
[2023-12-12 12:06] LABS: BILIRUBIN,TOTAL 0.4 mg/dL (0.2-1)
[2023-12-12] MEDS: IBUPROFEN 600 MG TABLET (FP) PO PRN (16:31)
[2023-12-12] MEDS: METHOCARBAMOL 500 MG TABLET PO PRN (17:34)
[2023-12-12] MEDS: ALBUTEROL SO4 HFA INHALER IH PRN (17:34)
[2023-12-12] MEDS: TOLNAFTATE 1% CREAM 15 GM TUBE TP SCH (22:22)
[2023-12-13] MEDS: MAG HYDROX/AL HYDROX/SIMETH 30 ML UNIT-DOSE CUP PO PRN (13:12)
[2023-12-13] MEDS: NICOTINE POLACRILEX 2 MG GUM BUC PRN (15:21)
[2023-12-14 09:17] VITALS: RESP 16
[2023-12-14 13:39] VITALS: BP 120/65; PULSE 70; TEMP 97.3
== END 2023-12-14 13:40 | disposition other institution (70) | DRG 773 ==
LOC: YASAS 08:40 → Y6N 11:29
PROVIDERS: ADMIT Allergy & Immunology; ATTEND Surgery
PROC: HZ2ZZZZ Detoxification Services for Substance Abuse Treatment (ICD-10-PCS; principal; 2023-12-11)
DX: F11.20 Opioid dependence, uncomplicated (principal); F14.20 Cocaine dependence, uncomplicated; F12.20 Cannabis dependence, uncomplicated; F17.210 Nicotine dependence, cigarettes, uncomplicated; F31.9 Bipolar disorder, unspecified; F25.1 Schizoaffective disorder, depressive type; J45.20 Mild intermittent asthma, uncomplicated; B35.1 Tinea unguium; Z86.59 Personal history of other mental and behavioral disorders
CPT/HCPCS: 36415; 80053; 80305; 85027; 86780; 87811; 93005; 93010

== ENCOUNTER 2023-12-24 13:28 | Inpatient (IN) | payer OTHER ==
[2023-12-24 13:53] VITALS: BMI 20.9
[2023-12-24] MEDS ORDERED: BENZONATATE 200 MG CAPSULE PO PRN (14:58)
[2023-12-24] MEDS ORDERED: LOPERAMIDE HCL 2 MG CAPSULE PO PRN (14:58)
[2023-12-24] MEDS ORDERED: MAGNESIUM HYDROX 2400MG/30ML ORAL SUSPENSION 30 ML CUP PO PRN (14:58)
[2023-12-24] MEDS ORDERED: guaiFENesin 600 MG TABLET.ER (FP) PO PRN (14:58)
[2023-12-24] MEDS ORDERED: BISMUTH SUBSALICYLATE 524 MG/30 ML PO PRN (14:58)
[2023-12-24] MEDS ORDERED: NICOTINE POLACRILEX 2 MG LOZENGE BC PRN (14:58)
[2023-12-24] MEDS ORDERED: MAG HYDROX/AL HYDROX/SIMETH 30 ML UNIT-DOSE CUP PO PRN (14:58)
[2023-12-24] MEDS ORDERED: DICYCLOMINE HCL 10 MG CAPSULE PO PRN (14:58)
[2023-12-24] MEDS ORDERED: IBUPROFEN 600 MG TABLET (FP) PO PRN (14:58)
[2023-12-24] MEDS ORDERED: ONDANSETRON *ODT* 4 MG TABLET SL PRN (14:58)
[2023-12-24] MEDS ORDERED: POLYETHYLENE GLYCOL (HEALTHYLAX) 3350 17 GM PACKET PO PRN (14:58)
[2023-12-24] MEDS ORDERED: NICOTINE POLACRILEX 2 MG GUM BUC PRN (14:58)
[2023-12-24] MEDS ORDERED: IBUPROFEN 400 MG TABLET (FP) PO PRN (14:58)
[2023-12-24] MEDS ORDERED: NALOXONE HCL 0.4 MG/ML VIAL IM PRN (14:58)
[2023-12-24] MEDS ORDERED: BENZOCAINE/MENTHOL (CHLORASEPTIC ) LOZENGE MM PRN (14:58)
[2023-12-24] MEDS ORDERED: ACETAMINOPHEN 325 MG TABLET (FP) PO PRN (14:58)
[2023-12-24] MEDS ORDERED: NALOXONE (NARCAN) HCL 4 MG/0.1 ML SPRAY NS PRN (14:58)
[2023-12-24] MEDS: PRENATAL VITAMINS W/ FOLIC ACID TABLET (FP) PO SCH (15:29)
[2023-12-24] MEDS: THIAMINE 100 MG TABLET PO SCH (23:11)
[2023-12-24] MEDS: MELATONIN 5 MG TABLETS PO SCH (23:11)
[2023-12-24] MEDS: METHOCARBAMOL 500 MG TABLET PO PRN (23:11)
[2023-12-25 12:02] LABS: HEMATOCRIT 39.2 % (35.4-49); HEMOGLOBIN 12.9 GM/dL (11.7-16.9); MCH 28.6 pg (25.7-33.7); MCHC 32.9 g/dl (32.0-35.9); PLATELET COUNT 284 10^3/uL (134-434); RBC 4.51 M/mm3 (4.00-5.60); RDW 15.8 % (11.9-15.9); WHITE BLOOD COUNT 6.9 K/mm3 (4.0-10.0)
[2023-12-25 12:03] LABS: CHLORIDE 109 mmol/L (98-107); POTASSIUM 4.3 mmol/L (3.5-5.1); SODIUM 143 mmol/L (136-145)
[2023-12-25 12:06] LABS: BLOOD UREA NITROGEN 14.5 mg/dL (7-18); CALCIUM 8.4 mg/dL (8.5-10.1)
[2023-12-25 12:08] LABS: ANION GAP 6 mmol/L (4-13); CO2 28 mmol/L (21-32); GLUCOSE,RANDOM 83 mg/dL (74-106)
[2023-12-25 12:10] LABS: CREATININE 0.7 mg/dL (0.55-1.3); SGOT/AST 14 U/L (15-37); SGPT/ALT 22 U/L (13-61)
[2023-12-25 12:12] LABS: BILIRUBIN,TOTAL 0.2 mg/dL (0.2-1); TOT PROT 6.5 g/dl (6.4-8.2)
[2023-12-25 12:13] LABS: ALK PHOS 65 U/L (45-117)
[2023-12-25] MEDS: ARIPiprazole 5 MG TABLET PO SCH (17:44)
[2023-12-25] MEDS: BENZTROPINE MESYLATE 1 MG TABLET PO SCH (17:44)
[2023-12-26 05:54] VITALS: BP 102/61; PULSE 68; RESP 18; TEMP 97.7
[2023-12-26] MEDS: hydrOXYzine PAMOATE 25 MG CAPSULE (FP) PO PRN (06:22)
[2023-12-26] MEDS: OXcarbazepine 150 MG TABLET (UD) PO SCH (09:23)
[2023-12-26] MEDS: SERTRALINE HCL 50 MG TABLET (FP) PO SCH (09:24)
== END 2023-12-26 09:27 | disposition other institution (70) | DRG 773 ==
LOC: YASAS 13:28 → Y3N 15:17
PROVIDERS: ADMIT Allergy & Immunology; ATTEND Surgery
PROC: HZ2ZZZZ Detoxification Services for Substance Abuse Treatment (ICD-10-PCS; principal; 2023-12-24)
DX: F10.230 Alcohol dependence with withdrawal, uncomplicated (principal); F11.20 Opioid dependence, uncomplicated; F14.20 Cocaine dependence, uncomplicated; F17.210 Nicotine dependence, cigarettes, uncomplicated; F31.9 Bipolar disorder, unspecified; F43.10 Post-traumatic stress disorder, unspecified; Z56.0 Unemployment, unspecified; Z59.01 Sheltered homelessness
CPT/HCPCS: 36415; 80053; 80305; 80307; 85027; 86780

== ENCOUNTER 2024-03-11 16:24 | Inpatient (IN) | payer OTHER ==
[2024-03-11 17:14] VITALS: BMI 20.9
[2024-03-11] MEDS ORDERED: BISMUTH SUBSALICYLATE 524 MG/30 ML PO PRN (18:26)
[2024-03-11] MEDS ORDERED: ACETAMINOPHEN 325 MG TABLET (FP) PO PRN (18:26)
[2024-03-11] MEDS ORDERED: METHOCARBAMOL 500 MG TABLET PO PRN (18:26)
[2024-03-11] MEDS ORDERED: LOPERAMIDE HCL 2 MG CAPSULE PO PRN (18:26)
[2024-03-11] MEDS ORDERED: guaiFENesin 600 MG TABLET.ER (FP) PO PRN (18:26)
[2024-03-11] MEDS ORDERED: MAG HYDROX/AL HYDROX/SIMETH 30 ML UNIT-DOSE CUP PO PRN (18:26)
[2024-03-11] MEDS ORDERED: NALOXONE HCL 0.4 MG/ML VIAL IM PRN (18:26)
[2024-03-11] MEDS ORDERED: BENZONATATE 200 MG CAPSULE PO PRN (18:26)
[2024-03-11] MEDS ORDERED: NICOTINE POLACRILEX 2 MG LOZENGE BC PRN (18:26)
[2024-03-11] MEDS ORDERED: NALOXONE (NARCAN) HCL 4 MG/0.1 ML SPRAY NS PRN (18:26)
[2024-03-11] MEDS ORDERED: IBUPROFEN 400 MG TABLET (FP) PO PRN (18:26)
[2024-03-11] MEDS ORDERED: IBUPROFEN 600 MG TABLET (FP) PO PRN (18:26)
[2024-03-11] MEDS ORDERED: hydrOXYzine PAMOATE 25 MG CAPSULE (FP) PO PRN (18:26)
[2024-03-11] MEDS ORDERED: MAGNESIUM HYDROX 2400MG/30ML ORAL SUSPENSION 30 ML CUP PO PRN (18:26)
[2024-03-11] MEDS ORDERED: BENZOCAINE/MENTHOL (CHLORASEPTIC ) LOZENGE MM PRN (18:26)
[2024-03-11] MEDS ORDERED: POLYETHYLENE GLYCOL (HEALTHYLAX) 3350 17 GM PACKET PO PRN (18:26)
[2024-03-11] MEDS ORDERED: ONDANSETRON *ODT* 4 MG TABLET SL PRN (18:26)
[2024-03-11] MEDS ORDERED: DICYCLOMINE HCL 10 MG CAPSULE PO PRN (18:26)
[2024-03-11] MEDS: MELATONIN 5 MG TABLETS PO SCH (21:38)
[2024-03-11] MEDS: THIAMINE 100 MG TABLET PO SCH (21:38)
[2024-03-12] MEDS: PRENATAL VITAMINS W/ FOLIC ACID TABLET (FP) PO SCH (09:33)
[2024-03-12 21:09] VITALS: BP 119/71; PULSE 74; RESP 17; TEMP 97.5
[2024-03-12] MEDS ORDERED: TOLNAFTATE 1% CREAM 15 GM TUBE TP SCH (22:00)
[2024-03-12] MEDS ORDERED: OXcarbazepine 150 MG TABLET (UD) PO SCH (22:00)
[2024-03-13] MEDS ORDERED: BENZTROPINE MESYLATE 1 MG TABLET PO SCH (10:00)
[2024-03-13] MEDS ORDERED: SERTRALINE HCL 50 MG TABLET (FP) PO SCH (10:00)
[2024-03-13] MEDS ORDERED: ARIPiprazole 5 MG TABLET PO SCH (10:00)
== END 2024-03-12 21:58 | disposition left against medical advice (07) | DRG 773 ==
LOC: YASAS 16:24 → Y3N 18:20 → Y6N 03-12 20:50
PROVIDERS: ADMIT Allergy & Immunology; ATTEND Surgery
PROC: HZ2ZZZZ Detoxification Services for Substance Abuse Treatment (ICD-10-PCS; principal; 2024-03-11)
DX: F14.10 Cocaine abuse, uncomplicated (principal); F11.20 Opioid dependence, uncomplicated; F17.210 Nicotine dependence, cigarettes, uncomplicated; F25.1 Schizoaffective disorder, depressive type; F41.1 Generalized anxiety disorder; F43.10 Post-traumatic stress disorder, unspecified; G47.00 Insomnia, unspecified; Z59.00 Homelessness unspecified; F91.8 Other conduct disorders; Z91.199 Patient's noncompliance with other medical treatment and regimen due to unspecified reason
CPT/HCPCS: 80305; 80307; 93005; 93010